=== PATIENT | male | born 1950 | race Two or more races ===

== ENCOUNTER 2020-12-05 12:57 | Inpatient (IN) | payer OTHER ==
[~2020-12-05] VITALS: Ht 157.5 cm; Wt 60.8 kg
[2020-12-05] MEDS ORDERED: cefTRIAXone 1GM/50ML D5W 50 ML IV ONE (13:15)
[2020-12-05] MEDS ORDERED: DexAMETHasone SOD PHOS 10MG/1ML VIAL INJ IV ONE (13:15)
[2020-12-05 14:13] LABS: Basophils # (auto) 0.1 10 ^3/uL (0-0.2); Basophils % (auto) 0.6 % (0.0-2.0); Eosinophils # (auto) 0.1 10 ^3/uL (0-0.8); Eosinophils % (auto) 0.5 % (0.0-7.0); Hematocrit 46.4 % (41.0-53.0); Hemoglobin 15.5 g/dL (13.5-17.5); Lymphocytes # (auto) 1.1 10 ^3/uL (0.4-5.4); Lymphocytes % (auto) 9.4 % (10.0-50.0); Mean Corpuscular Hemoglobin 30.7 pg (28.0-32.0); Mean Corpuscular Hgb Conc. 33.5 g/dL (32.0-36.0); Mean Corpuscular Volume 91.6 fL (80.0-100.0); Monocytes # (auto) 0.6 10 ^3/uL (0-1.3); Monocytes % (auto) 5.6 % (0.0-12.0); Neutrophils # (auto) 9.6 10 ^3/uL (1.6-8.6); Neutrophils % (auto) 83.9 % (37.0-80.0); Nucleated Red Blood Cells % 0.1 %; Platelet Count (auto) 232 10^3/uL (140-450); Red Blood Cells 5.06 10^6/uL (4.5-5.90); Red Cell Distribution Width 13.7 % (11.8-14.3); White Blood Cell 11.5 10^3/uL (4.4-10.8)
[2020-12-05 14:27] LABS: Albumin 2.8 g/dL (3.4-5.0); Anion Gap 8 (5-15); Blood Urea Nitrogen 20 mg/dL (7-18); Calcium 7.6 mg/dL (8.5-10.1); Carbon Dioxide 24 mmol/L (21-32); Chloride 98 mmol/L (98-107); Glucose 187 mg/dL (74-106); Potassium 3.9 mmol/L (3.5-5.1); Sodium 130 mmol/L (136-145)
[2020-12-05 14:36] LABS: Alanine Aminotransferase 15 U/L (16-61); Alkaline Phosphatase 114 U/L (45-117); Aspartate Aminotransferase 19 U/L (15-37); BUN/Creatinine Ratio 18.9; Bilirubin, Total 0.6 mg/dL (0.2-1.0); GFR African American 89 mL/min; GFR Non-African American 73 mL/min; Total Protein 7.2 g/dL (6.4-8.2)
[2020-12-05] MEDS ORDERED: MORPHINE SULF INJ 2 MG/ML SYRINGE 1ML IV PRN (15:45)
[2020-12-05] MEDS ORDERED: NITROGLYCERIN 0.4 MG SL TAB SL PRN (15:45)
[2020-12-05] MEDS: AZITHROMYCIN 500MG/ 250ML 250 ML IV SCH (16:13)
[2020-12-05] MEDS ORDERED: FUROSEMIDE 20 MG/2 ML VIAL IV ONE (16:15)
[2020-12-05] MEDS ORDERED: LORazepam 2MG/ML-1ML VIAL IV ONE (17:30)
[2020-12-05] MEDS ORDERED: OMEG1CAP59 PO (17:34)
[2020-12-05] MEDS ORDERED: [UNRECOGNIZED DRUG - CODE] PO (17:34)
[2020-12-05] MEDS ORDERED: MULT-1018 PO (17:34)
[2020-12-05 17:53] LABS: Urine Bacteria NONE SEEN /hpf (None Seen); Urine Blood Negative /uL (Negative); Urine Specific Gravity 1.011 (1.001-1.035); Urine WBC 1 /hpf (0 - 3)
[2020-12-06 05:00] VITALS: BP 115/75
[2020-12-06 07:27] LABS: Basophils # (auto) 0 10 ^3/uL (0-0.2); Basophils % (auto) 0.1 % (0.0-2.0); Eosinophils # (auto) 0 10 ^3/uL (0-0.8); Hematocrit 46.9 % (41.0-53.0); Hemoglobin 15.7 g/dL (13.5-17.5); Lymphocytes # (auto) 1.3 10 ^3/uL (0.4-5.4); Lymphocytes % (auto) 9.3 % (10.0-50.0); Mean Corpuscular Hemoglobin 30.5 pg (28.0-32.0); Mean Corpuscular Hgb Conc. 33.4 g/dL (32.0-36.0); Mean Corpuscular Volume 91.1 fL (80.0-100.0); Monocytes # (auto) 0.8 10 ^3/uL (0-1.3); Neutrophils # (auto) 11.5 10 ^3/uL (1.6-8.6); Neutrophils % (auto) 84.6 % (37.0-80.0); Nucleated Red Blood Cells % 0.2 %; Platelet Count (auto) 259 10^3/uL (140-450); Red Blood Cells 5.15 10^6/uL (4.5-5.90); Red Cell Distribution Width 13.8 % (11.8-14.3); White Blood Cell 13.6 10^3/uL (4.4-10.8)
[2020-12-06 07:45] VITALS: BP 122/78
[2020-12-06 07:45] LABS: Potassium 4.2 mmol/L (3.5-5.1)
[2020-12-06 07:55] LABS: Albumin 2.7 g/dL (3.4-5.0); BUN/Creatinine Ratio 20.9; Calcium 8.2 mg/dL (8.5-10.1)
[2020-12-06 07:58] LABS: Bilirubin, Total 0.7 mg/dL (0.2-1.0); Total Protein 6.9 g/dL (6.4-8.2)
[2020-12-06] MEDS: cefTRIAXone 1GM/50ML D5W 50 ML IV SCH (10:10)
[2020-12-06] MEDS: ENOXAPARIN SOD 40 MG/0.4 ML SYRINGE SC SCH (10:27)
[2020-12-06] MEDS: AZITHROMYCIN 500MG/ 250ML 250 ML IV SCH (12:17)
[2020-12-06] MEDS ORDERED: ALBUTEROL SULF 2.5 MG/0.5ML(0.5%) NEB SOLN NEB ONE (12:30)
[2020-12-06] MEDS ORDERED: IPRATROPIUM BROM 0.5 MG/2.5ML INH SOL NEB ONE (12:30)
[2020-12-06 16:00] VITALS: BP 114/65
[2020-12-06 22:00] VITALS: BP 112/78
[2020-12-07 05:00] VITALS: BP 111/69
[2020-12-07 08:00] VITALS: BP 102/52
[2020-12-07] MEDS: ENOXAPARIN SOD 40 MG/0.4 ML SYRINGE SC SCH (10:00)
[2020-12-07] MEDS: cefTRIAXone 1GM/50ML D5W 50 ML IV SCH (10:25)
[2020-12-07] MEDS: AZITHROMYCIN 500MG/ 250ML 250 ML IV SCH (11:18)
[2020-12-07 14:19] LABS: INR 1.03 (0.9-1.15); Partial Thromboplastin Time 29.1 sec (23.0-31.2)
[2020-12-07 16:00] VITALS: BP 137/70
[2020-12-07 16:56] VITALS: BP 137/70
== END 2020-12-07 18:05 | disposition home or self-care (01) | DRG 193 ==
LOC: EDBD 12:57 → ER 12:57 → OVERFLOW 16:56 → CENTRAL 12-06 04:25
PROVIDERS: ADMIT Internal Medicine; ATTEND Internal Medicine
PROC: 0W993ZZ Drainage of Right Pleural Cavity, Percutaneous Approach (ICD-10-PCS; principal; 2020-12-07)
DX: J18.9 Pneumonia, unspecified organism (principal); J96.01 Acute respiratory failure with hypoxia; J90 Pleural effusion, not elsewhere classified; J98.11 Atelectasis; I11.0 Hypertensive heart disease with heart failure; E11.9 Type 2 diabetes mellitus without complications; R63.4 Abnormal weight loss; Z20.822 Contact with and (suspected) exposure to COVID-19; I50.9 Heart failure, unspecified; Z79.4 Long term (current) use of insulin; Z83.3 Family history of diabetes mellitus; Z68.33 Body mass index [BMI] 33.0-33.9, adult
CPT/HCPCS: 36415; 71045; 71250; 80053; 81001; 83880; 83986; 84484; 85025; 85610; 85730; 87205; 87426; 89051; 93005; 94640; 96365; 96375; 99291; G0378; J0696; J1100